=== PATIENT | female | born 1950 | race Caucasian/White ===

== ENCOUNTER 2019-09-28 09:38 | Outpatient (CLI) | payer OTHER | END 2019-09-28 09:43 | disposition home or self-care (01) | LOC: SONOGRAMA 09:38 | PROVIDERS: ATTEND Pathology Anatomic Pathology & Clinical Pathology | DX: E04.1 Nontoxic single thyroid nodule (principal) ==

== ENCOUNTER 2025-05-03 10:55 | Outpatient (CLI) | payer OTHER | END 2025-05-03 10:57 | disposition home or self-care (01) | LOC: SONOGRAMA 10:55 | PROVIDERS: ATTEND Pathology Anatomic Pathology & Clinical Pathology | DX: D34 Benign neoplasm of thyroid gland (principal); E07.89 Other specified disorders of thyroid; E04.1 Nontoxic single thyroid nodule ==